=== PATIENT | female | born 1990 | race Caucasian/White ===

== ENCOUNTER 2022-03-10 07:52 | Inpatient (IN) ==
[2022-03-10] MEDS ORDERED: LACTATED RINGER'S 1,000 ML IV PRN (08:15)
--- NOTE | 2022-03-10 08:25 | History & Physical Report ---
Date of Service March 10, 2022 Assessment & Plan (1) Normal labor: Plan: fetus category one. expectant management. pit if needed. epidural on demand. anticipate . Admission and Anticipated Discharge Date Admission Date: March 10, 2022 History of Present Illness Chief Complaint: labor and rom Primary Care Provider: Sari Childers DO Patient is a 31yof, who presents to labor and delivery at 39 0/7 weeks. Was scheduled for elective induction today but started having contractions overnight and then had rom at 7am for clear fluid. Uncomfortable. This has been uncomplicated. Previous with iufd at 16 weeks. +fm. and Delivery Plans COVID POSITIVE 10/15/21 (SX STARTED 10/11/21) Elective induction 03/10/22 hx of 16 week iufd in second --neg torch titers, nl chromosomal evaluation may want frequent early visits for reassurance. covid vaccine complete January--Pfizer Flu vaccine received 09/01/21 OB Labs: Blood Type A Positive 08/05/21 Antibody Screen NEGATIVE 08/05/21 Hemoglobin 12.4 g/dL (12.0-16.0) 12/25/21 Hematocrit 35.8 % (37-47) L 12/25/21 Mean Corpuscular Volume 88.5 fL (80-100) 08/05/21 Platelet Count 308 K/uL (130-400) 08/05/21 Rubella IgG Antibody Immune (Immune) 08/05/21 Rapid Plasma Reagin Nonreactive (Nonreactive) 08/05/21 Hepatitis B Surface Antigen Neg (Neg) 08/05/21 HIV (1&2) Ab and P24 Ag, 4th Gener Neg (Neg) 08/05/21 Glucose 1 Hour 50 gm Load 114 mg/dl (70-130) 12/25/21 OB Optional Labs: Chlamydia trachomatis RNA NOT DETECTED (NOT DETECTED) 08/05/21 Neisseria gonorrhoeae RNA NOT DETECTED (NOT DETECTED) 08/05/21 Labs Reviewed: low risk panorama--akh declines cf/sma--akh msafp declined--smp 28wk labs reviewed--mln GBS negative--mln Allergies Allergy/AdvReac Type Severity Reaction Status Date / Time chocolate flavor AdvReac Migraine Verified 03/09/22 10:51 Home Medications Medication Instructions Recorded Confirmed Type prenat.vits,ray,ypd-mrbv-vyace 1 tab PO DAILY 06/12/21 03/09/22 History Patient History Medical History IUFD at less than 20 weeks of gestation Migraine with aura PCOS (polycystic ovarian syndrome) Pulsatile tinnitus, left ear Surgical History No significant past surgical history Family History Mother Diabetes Hypertension Social History Smoking Status: Never smoker Hx Alcohol Use: No Hx Substance Use: No Preferred Language: Scottish Communication Ability: Effective Donor Services Specialist Required: No Beliefs That Will Affect Care: None marital status: marital status details: Ryan (31) [phone] Current Living Situation: Spouse Current Living Situation Comment: lives with spouse, daughter, no pets. current occupational status: employed current occupation: [employer] student Feels Safe at Home: Yes Assistive Devices: None OB History Past Pregnancies Del. Date GA wks Lbr Lgth wt Sex Type del Anes Place Del Prov ? Comment 05/04/17 38 7lb 11oz F Epid ural Other [place] No 10/15/20 16 0lb 4oz F Sara se-Induced Vag Epidural [facility] Dr. Jacki story titers negative, nl female chromosomes. Physical Exam Constitutional: WD/WN, vitals as above Gastrointestinal (Abdomen): soft, gravid, nt Psychiatric: A+Ox3, euthymic affect Genitourinary: cx--4/90/-2 toco--q3-5 efm--140s with mod variability, accels to 160s, no decels Results & Data ([facility]) Vital Signs (Past 12 Hours) Vital Signs Temp Pulse Resp BP 03/10/22 07:55 36.7 C 88 20 129/71 Code Status & VTE Plan VTE Prophylaxis Plan VTE Prophylaxis will be ordered: No Coding Level of Care Code None Diagnoses Normal labor O80; Z37.9
[2022-03-10] MEDS ORDERED: BUPIVACAINE 0.25% 30 ML VIAL ONE (08:48)
[2022-03-10] MEDS ORDERED: ePHEDrine sulfate 50 MG/ML AMP ONE (08:48)
[2022-03-10] MEDS ORDERED: SODIUM CHLORIDE 0.9% INJ 10 ML VIAL ONE (08:48)
[2022-03-10] MEDS ORDERED: fentaNYL citrate 100 MCG/2 ML VIAL ONE (08:48)
[2022-03-10] MEDS ORDERED: fentaNYL 2MCG/ML ROPIVACAINE 1.25MG/ML 100 ML BAG EPI ONE (08:48)
[2022-03-10 08:50] LABS: Hematocrit (blood only) 39.7 % (37-47); Hemoglobin 13.6 g/dL (12.0-16.0); Mean Corpuscular Hemoglobin 32.9 pg (25-34); Mean Corpuscular Hgb Conc 34.3 g/dL (32-36); Mean Corpuscular Volume 95.9 fL (80-100); Mean Platelet Volume 9.6 fL (7.4-10.4); Platelet Count 313 K/uL (130-400); RDW Coefficient of Variation 13.2 % (11.5-14.5); RDW Standard Deviation 45.4 fL (36.4-46.3); Red Blood Count 4.14 M/uL (4.2-5.4)
--- NOTE | 2022-03-10 09:04 | Anesthesiology Consultation ---
Date of Service March 10, 2022 Assessment & Plan (1) Encounter for pre-operative examination: Chart Review Chart Review: Acceptable Risk for Labor Epidural Consults Requested none ASA ASA2 Proposed Anesthesia Anesthesia Type: Labor Epidural Risk / Benefits Reviewed With: PT / POA / Parent / Guardian, Accepts Plan and Informed Consent Obtained History Allergies Allergy/AdvReac Type Severity Reaction Status Date / Time chocolate flavor AdvReac Migraine Verified 03/09/22 10:51 Medications Home Medications Medication Instructions Recorded Confirmed Last Taken prenat.vits,ray,vwz-duoo-kwprp 1 tab PO DAILY 06/12/21 03/09/22 07/27/21 Active Medications Generic Name Dose Route Start Last Admin Trade Name Freq PRN Reason Stop Dose Admin Lactated Ringer's 1,000 mls @ 125 mls/hr 03/10/22 08:15 03/10/22 08:34 Lr IV 03/12/22 08:14 999 mls/hr .Q8H PRN Administration L&D Protocol Protocol Past Medical History Medical History IUFD at less than 20 weeks of gestation Migraine with aura PCOS (polycystic ovarian syndrome) Pulsatile tinnitus, left ear Exercise / Class Metabolic Activity II 4-5 Yardwork/Stairs/Walk up hill Past Family History Family History Mother Diabetes Hypertension Past Surgical History Surgical History No significant past surgical history Past Anesthesia History No Hx of Anesthesia Complications and No Family Hx of Anesthesia Complications History of PONV No Hx of PONV and No Hx of Motion Sickness Social History Smoking Status: Never smoker Hx Alcohol Use: No Hx Substance Use: No Physical Exam Vital Signs Last Vital Signs Temp 98.1 F 03/10/22 07:55 Pulse 169 H 03/10/22 08:59 Resp 20 03/10/22 07:55 BP 129/71 03/10/22 07:55 Pulse Ox 100 03/10/22 08:59 ENMT Mouth: no dentition abnormality Thyromental Distance: > or= 3.5 Finger Breadths Mallampati Class: II Neck normal visual inspection Respiratory normal respiratory effort Auscultation: lungs clear to auscultation bilaterally Cardiovascular Rate/Rhythm: regular rate and regular rhythm Testing Laboratory Results 03/10/22 08:27
[2022-03-10] MEDS ORDERED: NALBUPHINE HCL INJ 10 MG/ML AMP IV PRN (09:26)
[2022-03-10] MEDS ORDERED: fentaNYL 2MCG/ML ROPIVACAINE 1.25MG/ML 100 ML BAG EPI PRN (09:26)
[2022-03-10] MEDS ORDERED: NALOXONE HCL 1 MG in SODIUM CHLORIDE 0.9% 1000ML 1,000 ML IV PRN (09:26)
[2022-03-10] MEDS ORDERED: diphenhydrAMINE 50 MG/ML VIAL IV PRN (09:26)
[2022-03-10] MEDS ORDERED: ONDANSETRON INJ 2 MG/ML 2 ML VIAL IV PRN (09:26)
[2022-03-10] MEDS ORDERED: NALOXONE HCL 0.4 MG/1 ML VIAL/CARP IV PRN (09:26)
[2022-03-10] MEDS ORDERED: ePHEDrine sulfate 50 MG/ML AMP IV PRN (09:26)
--- NOTE | 2022-03-10 10:47 | Labor Progress Brief Note ---
Date of Service March 10, 2022 Subjective Better with epidural but has a spot on her right Assessment & Plan (1) Normal labor: Plan: fetus category one. making progress despite ctx spacing since epidural. Continue expectant management. anticipate . Admission and Anticipated Discharge Date Admission Date: March 10, 2022 Physical Exam Physical Exam: cx--5-6/100/-1 toco--q2-6 efm--130s with mod variability, accels to 160s, no decels. Results & Data ([facility]) Vital Signs (Past 12 Hours) Vital Signs Temp Pulse Resp BP Pulse Ox 03/10/22 10:40 84 95 03/10/22 10:35 98 H 95 03/10/22 10:33 86 114/63 03/10/22 10:30 86 95 03/10/22 10:25 91 H 96 03/10/22 10:20 83 95 03/10/22 10:18 90 113/60 03/10/22 10:15 82 95 03/10/22 10:10 94 H 95 03/10/22 10:05 75 95 03/10/22 10:03 82 119/65 03/10/22 10:00 94 H 96 03/10/22 09:55 86 95 03/10/22 09:50 89 20 119/67 96 03/10/22 09:45 96 H 97 03/10/22 09:40 91 H 97 03/10/22 09:35 81 96 03/10/22 09:32 36.8 C 92 H 20 115/67 03/10/22 09:30 95 H 113/63 96 03/10/22 09:28 88 115/63 03/10/22 09:26 90 104/57 L 03/10/22 09:25 92 H 97 03/10/22 09:24 85 112/74 03/10/22 09:22 89 122/80 03/10/22 09:20 83 117/71 03/10/22 09:19 91 H 93 03/10/22 09:14 89 94 03/10/22 09:09 89 94 03/10/22 09:08 90 133/81 03/10/22 09:06 86 94 03/10/22 09:04 96 H 93 03/10/22 08:59 169 H 100 03/10/22 07:55 36.7 C 88 20 129/71 Coding Level of Care Code None Diagnoses Normal labor O80; Z37.9
--- NOTE | 2022-03-10 12:00 | Labor Progress Brief Note ---
Date of Service March 10, 2022 Subjective COMFORTABLE Assessment & Plan (1) Normal labor: Plan: fetus category one. labor down. anticipate . Admission and Anticipated Discharge Date Admission Date: March 10, 2022 Physical Exam Physical Exam: cx--9/100/0 toco--q4-5min efm--130s wtih mod variability, accels to 150s, no decels Results & Data ([facility]) Vital Signs (Past 12 Hours) Vital Signs Temp Pulse Resp BP Pulse Ox 03/10/22 11:55 96 H 95 03/10/22 11:50 78 95 03/10/22 11:48 99 H 102/61 03/10/22 11:45 96 H 96 03/10/22 11:40 74 96 03/10/22 11:35 80 95 03/10/22 11:33 90 105/63 03/10/22 11:30 79 95 03/10/22 11:25 94 H 96 03/10/22 11:20 74 106/56 L 95 03/10/22 11:15 82 96 03/10/22 11:10 86 96 03/10/22 11:05 88 96 03/10/22 11:04 36.9 C 77 16 114/70 03/10/22 11:00 95 H 96 03/10/22 10:55 79 96 03/10/22 10:50 88 96 03/10/22 10:49 98 H 110/69 03/10/22 10:45 74 97 03/10/22 10:40 84 95 03/10/22 10:35 98 H 95 03/10/22 10:33 86 114/63 03/10/22 10:30 86 95 03/10/22 10:25 91 H 96 03/10/22 10:20 83 95 03/10/22 10:18 90 113/60 03/10/22 10:15 82 95 03/10/22 10:10 94 H 95 03/10/22 10:05 75 95 03/10/22 10:03 82 119/65 03/10/22 10:00 94 H 96 03/10/22 09:55 86 95 03/10/22 09:50 89 20 119/67 96 03/10/22 09:45 96 H 97 03/10/22 09:40 91 H 97 03/10/22 09:35 81 96 05/17/22 09:32 36.8 C 92 H 20 115/67 03/10/22 09:30 95 H 113/63 96 03/10/22 09:28 88 115/63 03/10/22 09:26 90 104/57 L 03/10/22 09:25 92 H 97 03/10/22 09:24 85 112/74 03/10/22 09:22 89 122/80 03/10/22 09:20 83 117/71 03/10/22 09:19 91 H 93 03/10/22 09:14 89 94 03/10/22 09:09 89 94 03/10/22 09:08 90 133/81 03/10/22 09:06 86 94 03/10/22 09:04 96 H 93 03/10/22 08:59 169 H 100 03/10/22 07:55 36.7 C 88 20 129/71 Coding Level of Care Code None Diagnoses Normal labor O80; Z37.9
[2022-03-10] MEDS: OXYTOCIN 30 UNITS/500 ML BAG IV PRN ×2 (13:29→14:11)
[2022-03-10] MEDS ORDERED: METHYLERGONOVINE MALEATE 0.2 MG/ML AMP ONE (13:31)
--- NOTE | 2022-03-10 13:38 | Delivery Summary ---
Vaginal Delivery Summary Date of Service March 10, 2022 Vaginal Delivery Summary Pre-operative Diagnosis: at 39 weeks srom and labor Post-operative Diagnosis: same Procedure: epidural small figure of eight suture in post forchette EBL: 400cc Anesthesia: epidural Procedure: The patient presented to labor and delivery with srom and labor. She progressed spontaneously to c/c/+1. The patient pushed for 30 min to deliver a viable female infant in justa position. The nose and mouth were bulb suctioned on the perineum and the rest of the was then delivered without difficulty. The baby was vigorous. The nose and mouth were again bulb suction ed and the was placed in the maternal abdomen for drying and attention. Cord was clamped and cut at one minute of life. Cord blood and segment obtained. Placenta delivered spontaneous, intact with a three vessel cord. Cervix/sulci/rectum were intact. A small first degree perineal laceration was repaired in the normal standard fashion. Hemostasis obtained with dilute pitocin and fundal massage, IM methergine. Apgars were 8/9. Mother and baby doing well at the end of the delivery. [facility] Vaginal Delivery Charge Delivery Type Details:
[2022-03-10] MEDS ORDERED: bisacodyL 10 MG SUPP PR PRN (14:24)
[2022-03-10] MEDS ORDERED: METHYLERGONOVINE MALEATE 0.2 MG/ML AMP IM ONE (14:24)
[2022-03-10] MEDS ORDERED: BENZOCAINE 20% AER SPR 82.5 GM CAN EXT PRN (14:24)
[2022-03-10] MEDS ORDERED: OXYTOCIN 30 UNITS/500 ML BAG IV PRN (14:24)
[2022-03-10] MEDS ORDERED: ACETAMINOPHEN 325 MG TAB PO PRN (14:24)
[2022-03-10] MEDS ORDERED: HYDROCORTISONE ACETATE 25 MG SUPP PR PRN (14:24)
[2022-03-10] MEDS ORDERED: DIPHTHERIA/TETANUS/PERTUSSIS 0.5 ML SYR/VIAL IM ONE (14:24)
--- NOTE | 2022-03-10 15:31 | Anesthesia Procedure Note ---
Date of Service March 10, 2022 Anesthesia Post Epidural Note Vital Signs Vital Signs: Temp Pulse Resp BP Pulse Ox 98.6 F 83 20 137/85 96 03/10/22 13:33 03/10/22 15:06 03/10/22 15:05 03/10/22 15:06 03/10/22 13:30 Pain Intensity Abdomen: Pain Intensity: 0 Head: Pain Intensity: 2 Notes Mental Status: alert / awake / arousable and participated in evaluation Nausea / Vomiting: adequately controlled Pain: adequately controlled Airway Patency, RR, SpO2: stable & adequate BP & HR: stable & adequate Hydration State: stable & adequate Neuraxial Anesthesia: was administered and sensory block is resolving Anesthetic Complications: no major complications apparent and Pt Satisfied with anesthetic care Epidural: Removed without complications and With tip intact
[2022-03-10] MEDS: DOCUSATE SODIUM 100 MG CAP PO SCH (20:15)
[2022-03-10] MEDS: IBUPROFEN 600 MG TAB PO PRN (20:35)
[2022-03-11] MEDS: IBUPROFEN 600 MG TAB PO PRN (01:14)
[2022-03-11 07:36] LABS: Hematocrit (blood only) 36.9 % (37-47); Hemoglobin 12.4 g/dL (12.0-16.0)
[2022-03-11] MEDS ORDERED: PRENATAL VITAMIN 1 TAB PO SCH (08:00)
--- NOTE | 2022-03-11 08:07 | Obstetrical Progress Note ---
Date of Service March 11, 2022 Assessment & Plan (1) Vaginal delivery: Doing well. Routine care. Considering d/c later today. Instructions given. Rh+. Day #:: 1 Subjective Ambulation: ambulating normally Voiding: no voiding problems Passing Gas:: Yes Diet Tolerance:: regular diet Lochia:: Small Feeding Type:: breast feeding Feels well, considering d/c later today. Physical Exam Constitutional WD/WN, vitals as above Cardiovascular Extremities: no calf tenderness and no edema Gastrointestinal (Abdomen) soft, nt, nd, ff/nt at u Results & Data ([facility]) Vital Signs (Past 12 Hours) Vital Signs Temp Pulse Resp BP Pulse Ox 03/11/22 03:50 36.8 C 62 16 109/64 98 03/10/22 23:45 36.6 C 76 18 107/68 95 03/10/22 20:15 36.7 C 73 20 115/71 96
[2022-03-11] MEDS: DOCUSATE SODIUM 100 MG CAP PO SCH (09:09)
== END 2022-03-11 16:11 | disposition home or self-care (01) | DRG 807 ==
LOC: 4S1 07:52 → 4E2 16:44